=== PATIENT | female | born 1935 | race African-American/Black ===

== ENCOUNTER 2017-05-19 21:11 | Emergency (ER) | payer MEDICARE, MEDICAID ==
[~2017-05-19] VITALS: Ht 170.2 cm; Wt 73.0 kg
[~2017-05-19 21:11] MED LIST: AMLODIPINE; ATORVASTATIN; CLINDAMYCIN; METOPROLOL; PROTONIX; XARALTO
[2017-05-19 21:14] VITALS: BP 159/98
== END 2017-05-19 22:00 | disposition left against medical advice (07) ==
LOC: ER 21:45
DX: T82.118A Breakdown (mechanical) of other cardiac electronic device, initial encounter (principal); R07.89 Other chest pain; I50.9 Heart failure, unspecified; I11.0 Hypertensive heart disease with heart failure
CPT/HCPCS: 99283

== ENCOUNTER 2025-07-30 01:24 | Emergency (ER) | payer MEDICARE, MEDICAID ==
[~2025-07-30] VITALS: Ht 165.1 cm; Wt 64.0 kg
[2025-07-30 01:26] VITALS: TEMP 36.8; O2SAT 96
[2025-07-30] MEDS: OLANZAPINE 10 MG/VIAL IM ONE (04:06)
[2025-07-30] MEDS: DIPHENHYDRAMINE 50MG/ML VIAL IM ONE (04:06)
[2025-07-30] MEDS ORDERED: ACETAMINOPHEN 325MG TABLET PO PRN (04:15)
[2025-07-30] MEDS ORDERED: DOCUSATE SODIUM 100MG CAPSULE PO PRN (04:15)
[2025-07-30] MEDS ORDERED: AMLODIPINE 5MG TABLET PO SCH (04:15)
[2025-07-30] MEDS ORDERED: NITROGLYCERIN 0.4MG TABLET SL SL PRN (04:15)
[2025-07-30] MEDS ORDERED: HYDRALAZINE 20MG/ML VIAL IV PRN (04:15)
[2025-07-30] MEDS ORDERED: ONDANSETRON HCL 4MG/2ML INJ IV PRN (04:15)
[2025-07-30] MEDS ORDERED: IPRATROPIUM/ALBUTEROL 0.5-3(2.5)MG/3ML NEB HHN PRN (04:15)
[2025-07-30 05:00] VITALS: BP 139/80; PULSE 109; RESP 16; O2SAT 98
[2025-07-30 05:34] LABS: BASOPHILS % 1.1 % (0.0-2.0); EOSINOPHILS % 0.6 % (0.0-5.0); HEMATOCRIT. 40.4 % (36.0-48.0); HEMOGLOBIN. 12.5 g/dL (12.0-16.0); LYMPHOCYTES % 20.8 % (20.0-50.0); MEAN PLATELET VOLUME 8.4 fl (7.4-10.4); MONOCYTES % 7.5 % (2.0-8.0); NEUTROPHILS % 70.0 % (40.0-76.0); PLATELET 276 x1000/uL (130-400); RED BLOOD CELL COUNT 4.90 mill/uL (4.2-5.4); RED CELL DISTRIBUTION WIDTH 17.3 % (11.6-14.6)
[2025-07-30 06:05] LABS: CREATININE 0.8 mg/dL (0.6-1.0); UREA NITROGEN BLOOD < 5 mg/dL (9-23)
[2025-07-30 06:07] LABS: ASPARTATE AMINOTRANSFERASE 56 IU/L (<34); BILIRUBIN DIRECT 0.1 mg/dL (<=3.0)
[2025-07-30 06:08] LABS: BILIRUBIN TOTAL 0.5 mg/dL (0.1-1.0); PROTEIN TOTAL 8.0 g/dL (6.0-8.3)
[2025-07-30 06:31] LABS: TROPONIN I HIGH SENSITIVITY 42 ng/L (3.0-34)
[2025-07-30] MEDS ORDERED: ENOXAPARIN 60MG/0.6ML SYR SUBCUT SCH (09:00)
[2025-07-30] MEDS ORDERED: PANTOPRAZOLE SODIUM 40 MG/VIAL IV SCH (09:00)
== END 2025-07-30 07:33 | disposition left against medical advice (07) ==
LOC: ER 01:24 → EDBEDREQTM 04:11 → EDBEDREQ 04:11 → ER 07:33 → CMPBEDREQ 07:45
DX: R07.89 Other chest pain (principal); I11.0 Hypertensive heart disease with heart failure; I50.9 Heart failure, unspecified; I48.91 Unspecified atrial fibrillation; J44.9 Chronic obstructive pulmonary disease, unspecified; M10.9 Gout, unspecified; Z79.02 Long term (current) use of antithrombotics/antiplatelets; Z79.82 Long term (current) use of aspirin; Z79.899 Other long term (current) drug therapy; Z88.0 Allergy status to penicillin; Z88.5 Allergy status to narcotic agent; Z88.6 Allergy status to analgesic agent; Z95.0 Presence of cardiac pacemaker
CPT/HCPCS: 99285; 93970; 80076; 80048; 82550; 83690; 83735; 85025; 84484; 36415; 93005; 96372; J3490; J1200